=== PATIENT | male | born 1990 | race African-American/Black ===

== ENCOUNTER 2018-01-25 21:49 | Emergency (ER) | payer OTHER ==
[~2018-01-25] VITALS: Ht 177.8 cm; Wt 68.5 kg
[~2018-01-25 21:49] MED LIST: ATROVENT H0.017 MG/1 INH; MEDDP PO; NORCO1 TA2 PO; PREDNISONE20 MG PO; PROVENTIL0.09 MG/A1; SING10 PO; SINGULAIR10 MG PO
[2018-01-25 22:11] VITALS: Ht 177.8 cm; Wt 68.5 kg
[2018-01-25 22:54] VITALS: BP 105/70
== END 2018-01-25 22:54 | disposition left against medical advice (07) ==
LOC: ED 21:49
DX: Z53.21 Procedure and treatment not carried out due to patient leaving prior to being seen by health care provider (principal)

== ENCOUNTER 2018-04-20 20:36 | Emergency (ER) | payer OTHER ==
[~2018-04-20] VITALS: Ht 177.8 cm; Wt 67.6 kg
[2018-04-20 21:26] VITALS: Ht 177.8 cm; Wt 67.6 kg
[2018-04-20 22:14] VITALS: BP 120/80
[2018-04-20 22:39] LABS: BASOPHIL % 0.8 % (0-2); PLATELET COUNT 212 x10^3mcL (130-400); RED CELL DISTRIBUTION WIDTH 14.4 % (11.5-14.5)
[2018-04-20 22:58] LABS: CALCIUM 8.6 mg/dL (8.5-10.1); CARBON DIOXIDE 28.4 mmol/L (21-32); CHLORIDE SERUM 103 mmol/L (98-107); CREATININE SERUM 1.1 mg/dL (0.7-1.3); GFR1 > 60 mL/min; GLUCOSE SERUM 94 mg/dL (74-106); POTASSIUM SERUM 4.1 mmol/L (3.5-5.1); SODIUM SERUM 139 mmol/L (136-145)
[2018-04-20 23:02] LABS: ALKALINE PHOSPHATASE 51 U/L (46-116); ALT/SGPT 26 U/L (16-63); AMYLASE 109 U/L (25-115); AST/SGOT 36 U/L (15-37); LIPASE 283 IU/L (73-393); TOTAL PROTEIN, SERUM 7.5 g/dL (6.4-8.2)
== END 2018-04-21 00:18 | disposition home or self-care (01) ==
LOC: ED 20:36
PROVIDERS: Specialist
DX: K64.4 Residual hemorrhoidal skin tags (principal); J45.909 Unspecified asthma, uncomplicated; I10 Essential (primary) hypertension; Z90.89 Acquired absence of other organs; Z98.890 Other specified postprocedural states; Z88.1 Allergy status to other antibiotic agents; Z88.8 Allergy status to other drugs, medicaments and biological substances; Z90.49 Acquired absence of other specified parts of digestive tract
CPT/HCPCS: 36415